=== PATIENT | female | born 2000 | race Caucasian/White ===

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

== ENCOUNTER 2020-06-27 03:54 | Emergency (ER) | payer OTHER ==
[~2020-06-27] VITALS: Ht 172.8 cm; Wt 77.3 kg
[2020-06-27] MEDS ORDERED: LACTATED RINGERS 1,000 ML IV ONE (04:15)
[2020-06-27] MEDS ORDERED: ONDANSETRON 4 MG/2 ML (SDV) Z0FRAN IVP ONE (04:15)
--- NOTE | 2020-06-27 04:15 | NUR ---
MOTHER AT BEDSIDE.
[2020-06-27 04:17] LABS: BASOPHILS % (AUTO) 0 % (0-10); EOSINOPHILS # (AUTO) 0.1 10^3/uL (0.0-0.3); EOSINOPHILS % (AUTO) 1 % (0-10); HEMATOCRIT 43 % (35-52); HEMOGLOBIN 13.7 g/dL (11.5-16.0); LYMPHOCYTES # (AUTO) 0.6 10^3/uL (1.0-4.0); LYMPHOCYTES % (AUTO) 3 % (12-44); MEAN CORPUSCULAR HEMOGLOBIN 26 pg (25-34); MEAN CORPUSCULAR HGB CONC 32 g/dL (32-36); MEAN CORPUSCULAR VOLUME 81 fL (80-99); MEAN PLATELET VOLUME 8.6 fL (9.0-12.2); MONOCYTES # (AUTO) 0.6 10^3/uL (0.0-1.0); MONOCYTES % (AUTO) 3 % (0-12); NEUTROPHILS # (AUTO) 15.5 10^3/uL (1.8-7.8); NEUTROPHILS % (AUTO) 92 % (42-75); PLATELET COUNT 356 10^3/uL (130-400); WHITE BLOOD COUNT 16.9 10^3/uL (4.3-11.0)
--- NOTE | 2020-06-27 04:17 | ED GI ---
General Stated Complaint: N/V/D Source of Information: Patient History of Present Illness Date Seen by Provider: Jun 27, 2020 Time Seen by Provider: 04:04 Initial Comments PT ARRIVES VIA POV FROM HOME C/O DIARRHEA X 2 WEEKS--APPROXIMATELY 2 TIMES A DAY FOR THE LAST 2 WEEKS HAS NOT SOUGHT CARE FOR THAT PROBLEM AT ANYTIME SINCE 2200 THIS EVENING SHE BEGAN TO HAVE NAUSEA AND VOMITING--VOMITING EVERY 30 MINUTES AND IS NOW HAVING DIARRHEA EVERY TIME SHE THROWS UP WELL. MOSTLY DRY HEAVES NOW HAS ABDOMINAL DISCOMFORT JUST BEFORE AND JUST AFTER SHE THROWS UP NO FEVER NO LOSS OF TASTE OR SMELL NO HEADACHE NO BODY ACHES NO SORE THROAT NO COUGH OR NASAL DRAINAGE NO KNOWN EXPOSURE TO COVID 19 NO SICK CONTACTS OR SUSPICIOUS FOODS TOOK ZOFRAN AROUND 0100--HAS RX FOR WHEN SHE HAS MIGRAINES LAST VOID AROUND 2100, BUT HAS URINATED WITH VOMITING AND DIARRHEA WELL LMP END OF MAY, NORMAL. ON OCP'S MOM STATES SHE HAS NOT BEEN CONCERNED ABOUT THE DIARRHEA THAT PT HAS HAD FOR THE LAST COUPLE OF WEEKS--PT HAS MADE ALOT OF DIET CHANGES--TRYING TO LOSE WEIGHT--HAD GAINED 40# SINCE COVID-19 PANDEMIC STARTED--AND PT HAS STRESSED ABOUT SCHOOL, ETC. PCP: DR. ROMAN Allergies and Home Medications Allergies Coded Allergies: No Allergy Information Available (Unverified , 02/22/18) Home Medications Hyoscyamine Sulfate 0.125 Mg Tab.subl, 0.25 MG SL Q4H Prescribed by: SERGE KHAN on 06/27/20512 L. Acidophilus/Pectin, [place] 1 Each Capsule, 2 EACH PO QID Prescribed by: SERGE KHAN on 06/27/20512 Ondansetron 8 Mg Tab.rapdis, 8 MG PO Q6H Prescribed by: SERGE KHAN on 06/27/20512 Patient Home Medication List Home Medication List Reviewed: Yes Review of Systems Review of Systems Constitutional: no symptoms reported EENTM: No Symptoms Reported Respiratory: No Symptoms Reported Cardiovascular: No Symptoms Reported Gastrointestinal: See HPI, Abdominal Pain, Diarrhea, Nausea, Vomiting Genitourinary: No Symptoms Reported Musculoskeletal: no symptoms reported Skin: no symptoms reported Psychiatric/Neurological: No Symptoms Reported Endocrine: No Symptoms Reported Hematologic/Lymphatic: No Symptoms Reported Past Shrehmc-Hyryta-Sujavo Hx Past Med/Social Hx: Reviewed and Corrections made Patient Social History Alcohol Use: Denies Use Drug of Choice: DENIES Smoking Status: Never a Smoker Past Medical History Surgeries: No Respiratory: No Cardiac: No Neurological: Yes Headaches /Migraines : No Reproductive Disorders: Yes Female Reproductive Disorders: Ovarian Cyst Genitourinary: No Gastrointestinal: No Musculoskeletal: No Endocrine: No HEENT: No Cancer: No Psychosocial: Yes Anxiety, Depression Family Medical History LYME DISEASE Physical Exam Vital Signs Vital Signs - First Documented 06/27/20 04:04 Temp 36.5 Pulse 111 Resp 18 B/P (MAP) 136/104 (115) Pulse Ox 97 O2 Delivery Room Air Capillary Refill : Height/Weight/BMI Height: '" Weight: lbs. oz. kg; BMI Method: General Appearance: WD/WN, no apparent distress, other (ANXIOUS, HARSH DRY HEAVES) HEENT: PERRL/EOMI, other (ORAL MUCOSA MOIST) Neck: normal inspection Respiratory: normal breath sounds, no respiratory distress, no accessory muscle use Cardiovascular: regular rate, rhythm, no murmur Gastrointestinal: soft, no organomegaly, abnormal bowel sounds (DECREASED); No distended, No guarding, No rebound; tenderness (MILD EPIGASTRIC TENDERNESS) Extremities: normal inspection Back: no CVA tenderness Neurologic/Psychiatric: scientific editor II-XII nml as tested, no motor/sensory deficits, alert, oriented x 3, other (ANXIOUS) Skin: normal color, warm/dry Progress/Results/Core Measures Results/Orders Lab Results Laboratory Tests Test 06/27/20 04:08 06/27/20 04:50 Range/Units White Blood Count 16.9 H 4.3-11.0 10^3/uL Red Blood Count 5.31 H 3.80-5.11 10^6/uL Hemoglobin 13.7 11.5-16.0 g/dL Hematocrit 43 35-52 % Mean Corpuscular Volume 81 80-99 fL Mean Corpuscular Hemoglobin 26 25-34 pg Mean Corpuscular Hemoglobin Concent 32 32-36 g/dL Red Cell Distribution Width 13.6 10.0-14.5 % Platelet Count 356 130-400 10^3/uL Mean Platelet Volume 8.6 L 9.0-12.2 fL Immature Granulocyte % (Auto) 0 % Neutrophils (%) (Auto) 92 H 42-75 % Lymphocytes (%) (Auto) 3 L 12-44 % Monocytes (%) (Auto) 3 0-12 % Eosinophils (%) (Auto) 1 0-10 % Basophils (%) (Auto) 0 0-10 % Neutrophils # (Auto) 15.5 H 1.8-7.8 10^3/uL Lymphocytes # (Auto) 0.6 L 1.0-4.0 10^3/uL Monocytes # (Auto) 0.6 0.0-1.0 10^3/uL Eosinophils # (Auto) 0.1 0.0-0.3 10^3/uL Basophils # (Auto) 0.0 0.0-0.1 10^3/uL Immature Granulocyte # (Auto) 0.1 0.0-0.1 10^3/uL Neutrophils % (Manual) 87 % Lymphocytes % (Manual) 3 % Monocytes % (Manual) 5 % Band Neutrophils 5 % Blood Morphology Comment NORMAL Sodium Level 137 135-145 MMOL/L Potassium Level 4.1 3.6-5.0 MMOL/L Chloride Level 105 98-107 MMOL/L Carbon Dioxide Level 21 21-32 MMOL/L Anion Gap 11 5-14 MMOL/L Blood Urea Nitrogen 12 7-18 MG/DL Creatinine 0.82 0.60-1.30 MG/DL Estimat Glomerular Filtration Rate > 60 BUN/Creatinine Ratio 15 Glucose Level 132 H 70-105 MG/DL Calcium Level 9.5 8.5-10.1 MG/DL Corrected Calcium 9.3 8.5-10.1 MG/DL Magnesium Level 1.7 1.6-2.4 MG/DL Total Bilirubin 0.7 0.1-1.0 MG/DL Aspartate Amino Transf (AST/SGOT) 22 5-34 U/L Alanine Aminotransferase (ALT/SGPT) 27 0-55 U/L Alkaline Phosphatase 75 40-136 U/L Total Protein 8.2 6.4-8.2 GM/DL Albumin 4.2 3.2-4.5 GM/DL Amylase Level 83 25-125 U/L Lipase 32 8-78 U/L Urine Color YELLOW Urine Clarity CLEAR Urine pH 5.5 5-9 Urine Specific [place] >=1.030 1.016-1.022 Urine Protein 1+ H NEGATIVE Urine Glucose (UA) NEGATIVE NEGATIVE Urine Ketones NEGATIVE NEGATIVE Urine Nitrite NEGATIVE NEGATIVE Urine Bilirubin NEGATIVE NEGATIVE Urine Urobilinogen 0.2 < = 1.0 MG/DL Urine Leukocyte Esterase NEGATIVE NEGATIVE Urine RBC (Auto) 1+ H NEGATIVE Urine RBC 0-2 /HPF Urine WBC NONE /HPF Urine Squamous Epithelial Cells 10-25 H /HPF Urine Crystals NONE /LPF Urine Bacteria FEW H /HPF Urine Casts NONE /LPF Urine Mucus LARGE H /LPF Urine Culture Indicated NO My Orders Orders - SERGE KHAN DO Ed Iv/Invasive Line Start (06/27/20 04:05) Urine Bedside (06/27/20 04:05) Monitor-Rhythm Ecg Trace Only (06/27/20 04:05) Amylase (06/27/20 04:05) Cbc With Automated Diff (06/27/20 04:05) Comprehensive Metabolic Panel (06/27/20 04:05) Lipase (06/27/20 04:05) Magnesium (06/27/20 04:05) Ua Culture If Indicated (06/27/20 04:05) Ondansetron Injection (Zofran Injectio (06/27/20 04:15) Ed Iv/Invasive Line Start (06/27/20 04:05) Lactated Ringers (Lr 1000 Ml Iv Solution (06/27/20 04:15) Manual Differential (06/27/20 04:08) Medications Given in ED Current Medications Medications Dose Ordered Sig/Chava Route Start Time Stop Time Status Last Admin Dose Admin Lactated Ringer's 1,000 ml @ 0 mls/hr Q0M ONCE IV 06/27/20 04:15 06/27/20 04:17 DC 06/27/20 04:10 0 MLS/HR Ondansetron HCl 4 mg ONCE ONCE IVP 06/27/20 04:15 06/27/20 04:17 DC 06/27/20 04:10 4 MG Vital Signs/I&O 06/27/20 04:04 Temp 36.5 Pulse 111 Resp 18 B/P (MAP) 136/104 (115) Pulse Ox 97 O2 Delivery Room Air Progress Progress Note : Progress Note GIVEN IV FLUIDS AND ZOFRAN IV--NAUSEA IMPROVED, NO FURTHER VOMITING. NO DIARRHEA DURING STAY.NO ABDOMINAL PAIN PT WAS ABLE TO VOID SHORTLY AFTER ARRIVAL. PT TOLERATING ICE CHIPS Departure Impression Primary Impression: Gastroenteritis Disposition: 01 HOME, SELF-CARE Condition: Improved Departure-Patient Inst. Referrals: KEVIN ROMAN DO (PCP/Family) Primary Care Physician Patient Instructions: Viral Gastroenteritis, Adult (DC) Add. Discharge Instructions: CLEAR LIQUIDS--WATER, BROTH, JELLO, GATORADE TOMORROW IF YOU ARE BETTER, ADD BRATS DIET TO CLEAR LIQUIDS--BANANAS, RICE, APPLESAUCE, TOAST, SALTINES TAKE YOUR ZOFRAN EVERY 4 HOURS NEEDED FOR NAUSEA FOLLOW UP WITH YOUR DR TOMORROW IF SYMPTOMS PERSIST, RETURN TO ER IF SYMPTOMS WORSEN Scripts L. Acidophilus/Pectin, [place] (Acidophilus Capsule) 1 Each Capsule 2 EACH PO QID, #40 CAP Prov: SERGE KHAN DO 06/27/20 Hyoscyamine Sulfate (Levsin-Sl) 0.125 Mg Tab.subl 0.25 MG SL Q4H, #15 TAB Prov: SERGE KHAN DO 06/27/20 Ondansetron (Ondansetron Odt) 8 Mg Tab.rapdis 8 MG PO Q6H, #10 TAB Prov: SERGE KHAN DO 06/27/20 SERGE KHAN DO Jun 27, 2020 04:17
[2020-06-27 04:36] LABS: ALBUMIN 4.2 GM/DL (3.2-4.5); CHLORIDE 105 MMOL/L (98-107); POTASSIUM 4.1 MMOL/L (3.6-5.0); SODIUM 137 MMOL/L (135-145)
[2020-06-27 04:37] LABS: AMYLASE 83 U/L (25-125); CALCIUM 9.5 MG/DL (8.5-10.1)
[2020-06-27 04:38] LABS: GLUCOSE 132 MG/DL (70-105); TOTAL PROTEIN 8.2 GM/DL (6.4-8.2)
[2020-06-27 04:39] LABS: CARBON DIOXIDE 21 MMOL/L (21-32)
[2020-06-27 04:40] LABS: BILIRUBIN,TOTAL 0.7 MG/DL (0.1-1.0)
[2020-06-27 04:42] LABS: ALKALINE PHOSPHATASE 75 U/L (40-136); CREATININE SERUM 0.82 MG/DL (0.60-1.30); GFR ESTIMATED > 60
[2020-06-27 04:43] LABS: BUN/CREATININE RATIO 15
[2020-06-27 04:45] LABS: ALANINE AMINOTRANSFERASE 27 U/L (0-55); MAGNESIUM 1.7 MG/DL (1.6-2.4)
[2020-06-27 04:46] LABS: LIPASE 32 U/L (8-78)
[2020-06-27 04:58] LABS: BILIRUBIN,URINE NEGATIVE (NEGATIVE); CLARITY,URINE CLEAR; COLOR,URINE YELLOW; GLUCOSE, URINE (UA) NEGATIVE (NEGATIVE); KETONES,URINE NEGATIVE (NEGATIVE); LEUKOCYTE ESTERASE ,URINE NEGATIVE (NEGATIVE); NITRITE,URINE NEGATIVE (NEGATIVE); PH,URINE 5.5 (5-9); PROTEIN,URINE 1+ (NEGATIVE)
[2020-06-27 05:00] LABS: BAND NEUTROPHILS 5 %; NEUTROPHILS % (MANUAL) 87 %
[2020-06-27 05:01] LABS: LYMPHOCYTES % (MANUAL) 3 %; MONOCYTES % (MANUAL) 5 %; RBC MORPH NORMAL
[2020-06-27 05:04] LABS: BACTERIA,URINE FEW /HPF; RBC,URINE 0-2 /HPF
[2020-06-27] MEDS ORDERED: HYOS0.1283 SL (05:13)
[2020-06-27] MEDS ORDERED: L. A1CAP11 PO (05:13)
[2020-06-27] MEDS ORDERED: ONDA8TAB13 PO (05:13)
[2020-06-27 05:24] VITALS: BP 120/72
== END 2020-06-27 05:24 | disposition home or self-care (01) ==
LOC: EDUNIT# 03:54 → ER 03:56
DX: K52.9 Noninfective gastroenteritis and colitis, unspecified (principal); F41.9 Anxiety disorder, unspecified
CPT/HCPCS: 36415; 80053; 81000; 82150; 83690; 83735; 84703; 85007; 85027; 93041

== ENCOUNTER 2021-02-12 10:31 | Emergency (ER) | payer OTHER ==
[~2021-02-12] VITALS: Ht 172 cm; Wt 81.6 kg
[~2021-02-12 10:31] MED LIST changes: +HYOS0.1283 SL; -IOHEXOL 350 MG/ML 100 ML (OMNIPAQUE 350) VIAL IV ONE; +L. A1CAP11 PO; -NS 100 ML (IVPB) BAG IV ONE; +ONDA8TAB13 PO; -RECEIVED CONTRAST (Hold Metformin) IV SCH
--- NOTE | 2021-02-12 10:52 | ED Chest Pain ---
General Chief Complaint: Chest Pain Stated Complaint: CHEST PAIN Source: patient Exam Limitations: no limitations History of Present Illness Date Seen by Provider: Feb 12, 2021 Time Seen by Provider: 10:50 Initial Comments To ER with chest pain that awakened her from sleep that started at about 9 AM this morning. She had associated shortness of breath and the pain was worsened by swallowing. She does feel anxious and she is on fluoxetine for anxiety. No history of this. She states that she had a high heart rate for about 2 years. 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 Timing/Duration: 1-2 days Severity/Quality: moderate Location: central Radiation: no radiation Activities at Onset: none Prior CP/Workup: no prior chest pain ASA po GROUNDS/MAINTENANCE SPECIALIST: No NTG SL GROUNDS/MAINTENANCE SPECIALIST: No Associated Symptoms: shortness of breath Allergies and Home Medications Allergies Coded Allergies: No Allergy Information Available (Unverified , 02/22/18) Patient Home Medication List Home Medication List Reviewed: Yes Hyoscyamine Sulfate (Levsin-Sl) 0.125 Mg Tab.subl, 0.25 MG SL Q4H Prescribed by: SERGE KHAN on 06/27/20512 L. Acidophilus/Pectin, [place] (Acidophilus Capsule) 1 Each Capsule, 2 EACH PO QID Prescribed by: SERGE KHAN on 06/27/20512 Ondansetron (Ondansetron Odt) 8 Mg Tab.rapdis, 8 MG PO Q6H Prescribed by: SERGE KHAN on 06/27/20512 Review of Systems Review of Systems Constitutional: see HPI EENTM: No Symptoms Reported Respiratory: No Symptoms Reported Cardiovascular: See HPI, Chest Pain Gastrointestinal: No Symptoms Reported Genitourinary: No Symptoms Reported Musculoskeletal: no symptoms reported Skin: no symptoms reported Psychiatric/Neurological: No Symptoms Reported Endocrine: No Symptoms Reported Hematologic/Lymphatic: No Symptoms Reported Past Duuwfpu-Xukmji-Slyekb Hx Patient Social History Tobacco Use?: No Substance use?: No Alcohol Use?: Yes Alcohol Frequency: Once in a while Pt feels they are or have been: No Immunizations Up To Date First/Initial COVID19 Vaccinat: October COVID19 Vaccination Adonis: NOVEMBER COVID Vaccine Real Estate Investment Analyst: RANDI Seasonal Allergies Seasonal Allergies: No Past Medical History Surgery/Hospitalization HX: PMH: ANXIETY, DEPRESSION Surgeries: No Respiratory: No Cardiac: No Neurological: Yes Headaches /Migraines Reproductive Disorders: Yes Female Reproductive Disorders: Ovarian Cyst Genitourinary: No Gastrointestinal: No Musculoskeletal: No Endocrine: No HEENT: No Cancer: No Psychosocial: Yes Anxiety, Depression Integumentary: No Family Medical History LYME DISEASE Physical Exam Vital Signs Vital Signs - First Documented 02/12/21 10:46 Temp 36.1 Pulse 94 Resp 18 B/P (MAP) 145/98 (114) Pulse Ox 99 Capillary Refill : Height, Weight, BMI Height: '" Weight: lbs. oz. kg; 25.00 BMI Method: General Appearance: No Apparent Distress, WD/WN, Anxious Neck: Full Range of Motion, Normal Inspection Respiratory: Lungs Clear, Normal Breath Sounds, No Accessory Muscle Use, No Respiratory Distress Cardiovascular: Regular Rate, Rhythm, Normal Peripheral Pulses Gastrointestinal: Normal Bowel Sounds, Non Tender, Soft Extremity: Normal Capillary Refill, Normal Inspection Neurologic/Psychiatric: Alert, Oriented x3 Skin: Normal Color, Warm/Dry Progress/Results/Core Measures Results/Orders Lab Results Laboratory Tests Test 02/12/21 11:08 Range/Units White Blood Count 11.5 H 4.3-11.0 10^3/uL Red Blood Count 5.02 3.80-5.11 10^6/uL Hemoglobin 12.8 11.5-16.0 g/dL Hematocrit 42 35-52 % Mean Corpuscular Volume 83 80-99 fL Mean Corpuscular Hemoglobin 26 25-34 pg Mean Corpuscular Hemoglobin Concent 31 L 32-36 g/dL Red Cell Distribution Width 14.2 10.0-14.5 % Platelet Count 331 130-400 10^3/uL Mean Platelet Volume 8.2 L 9.0-12.2 fL Immature Granulocyte % (Auto) 0 % Neutrophils (%) (Auto) 71 42-75 % Lymphocytes (%) (Auto) 21 12-44 % Monocytes (%) (Auto) 5 0-12 % Eosinophils (%) (Auto) 2 0-10 % Basophils (%) (Auto) 0 0-10 % Neutrophils # (Auto) 8.2 H 1.8-7.8 10^3/uL Lymphocytes # (Auto) 2.5 1.0-4.0 10^3/uL Monocytes # (Auto) 0.6 0.0-1.0 10^3/uL Eosinophils # (Auto) 0.2 0.0-0.3 10^3/uL Basophils # (Auto) 0.0 0.0-0.1 10^3/uL Immature Granulocyte # (Auto) 0.0 0.0-0.1 10^3/uL D-Dimer 0.35 0.00-0.49 UG/ML Sodium Level 137 135-145 MMOL/L Potassium Level 3.9 3.6-5.0 MMOL/L Chloride Level 107 98-107 MMOL/L Carbon Dioxide Level 19 L 21-32 MMOL/L Anion Gap 11 5-14 MMOL/L Blood Urea Nitrogen 12 7-18 MG/DL Creatinine 0.76 0.60-1.30 MG/DL Estimat Glomerular Filtration Rate 96 BUN/Creatinine Ratio 16 Glucose Level 94 70-105 MG/DL Calcium Level 9.3 8.5-10.1 MG/DL Corrected Calcium 9.5 8.5-10.1 MG/DL Total Bilirubin 0.6 0.1-1.0 MG/DL Aspartate Amino Transf (AST/SGOT) 13 5-34 U/L Alanine Aminotransferase (ALT/SGPT) 10 0-55 U/L Alkaline Phosphatase 74 40-136 U/L Troponin I < 0.028 <0.028 NG/ML C-Reactive Protein High Sensitivity 1.57 H 0.00-0.50 MG/DL Total Protein 7.4 6.4-8.2 GM/DL Albumin 3.7 3.2-4.5 GM/DL My Orders Orders - OMAR KEMP APRN Cbc With Automated Diff (02/12/21 10:48) Comprehensive Metabolic Panel (02/12/21 10:48) Fibrin Degradation Products (02/12/21 10:48) Ekg Tracing (02/12/21 10:48) Chest 1 View, Ap/Pa Only (02/12/21 10:48) Troponin I (02/12/21 10:48) Hs C Reactive Protein (02/12/21 10:48) Antacid Suspension (Mylanta Suspension (02/12/21 11:00) Lidocaine 2% Viscous 15 Ml (Xylocaine Vi (02/12/21 11:00) Alprazolam Tablet (Xanax Tablet) (02/12/21 11:00) Medications Given in ED Current Medications Medications Dose Ordered Sig/Chava Route Start Time Stop Time Status Last Admin Dose Admin Al Hydrox/Mg Hydrox/Simethicone 30 ml ONCE ONCE PO 02/12/21 11:00 02/12/21 11:01 DC 02/12/21 11:00 30 ML Alprazolam 0.25 mg ONCE ONCE PO 02/12/21 11:00 02/12/21 11:01 DC 02/12/21 11:00 0.25 MG Lidocaine HCl 10 ml ONCE ONCE PO 02/12/21 11:00 02/12/21 11:01 DC 02/12/21 11:00 10 ML Vital Signs/I&O 02/12/21 10:46 Temp 36.1 Pulse 94 Resp 18 B/P (MAP) 145/98 (114) Pulse Ox 99 Departure Communication (Admissions) EKG shows sinus rhythm at 82, no ST segment changes no ectopy. Impression Primary Impression: Nonspecific chest pain Disposition: HOME, SELF-CARE Condition: Stable Departure-Patient Inst. Decision time for Depature: 12:01 Referrals: KEVIN ROMAN DO (PCP/Family) Primary Care Physician Patient Instructions: Chest Pain That Is Not Caused by the Heart (DC) OMAR KEMP DEATH SURVEYS CODER Feb 12, 2021 10:52
[2021-02-12] MEDS ORDERED: ALPRAZolam 0.25 MG (XANAX) TAB PO ONE (11:00)
[2021-02-12] MEDS ORDERED: LIDOCAINE 2% VISCOUS 15 ML UDC PO ONE (11:00)
[2021-02-12] MEDS ORDERED: ANTACID SUSP 30 ML UDC (MYLANTA) PO ONE (11:00)
[2021-02-12 11:18] LABS: BASOPHILS % (AUTO) 0 % (0-10); EOSINOPHILS # (AUTO) 0.2 10^3/uL (0.0-0.3); EOSINOPHILS % (AUTO) 2 % (0-10); HEMATOCRIT 42 % (35-52); HEMOGLOBIN 12.8 g/dL (11.5-16.0); LYMPHOCYTES # (AUTO) 2.5 10^3/uL (1.0-4.0); LYMPHOCYTES % (AUTO) 21 % (12-44); MEAN CORPUSCULAR HEMOGLOBIN 26 pg (25-34); MEAN CORPUSCULAR HGB CONC 31 g/dL (32-36); MEAN CORPUSCULAR VOLUME 83 fL (80-99); MEAN PLATELET VOLUME 8.2 fL (9.0-12.2); MONOCYTES # (AUTO) 0.6 10^3/uL (0.0-1.0); MONOCYTES % (AUTO) 5 % (0-12); NEUTROPHILS # (AUTO) 8.2 10^3/uL (1.8-7.8); NEUTROPHILS % (AUTO) 71 % (42-75); PLATELET COUNT 331 10^3/uL (130-400); WHITE BLOOD COUNT 11.5 10^3/uL (4.3-11.0)
[2021-02-12 11:32] LABS: ALBUMIN 3.7 GM/DL (3.2-4.5); CHLORIDE 107 MMOL/L (98-107); POTASSIUM 3.9 MMOL/L (3.6-5.0); SODIUM 137 MMOL/L (135-145)
[2021-02-12 11:33] LABS: CALCIUM 9.3 MG/DL (8.5-10.1)
[2021-02-12 11:34] LABS: GLUCOSE 94 MG/DL (70-105); TOTAL PROTEIN 7.4 GM/DL (6.4-8.2)
[2021-02-12 11:35] LABS: CARBON DIOXIDE 19 MMOL/L (21-32)
[2021-02-12 11:36] LABS: BILIRUBIN,TOTAL 0.6 MG/DL (0.1-1.0)
[2021-02-12 11:38] LABS: ALKALINE PHOSPHATASE 74 U/L (40-136); CREATININE SERUM 0.76 MG/DL (0.60-1.30); GFR ESTIMATED 96
[2021-02-12 11:39] LABS: BUN/CREATININE RATIO 16
[2021-02-12 11:41] LABS: ALANINE AMINOTRANSFERASE 10 U/L (0-55)
--- NOTE | 2021-02-12 12:09 | Diagnostic Imaging Report ---
EXAMINATION: Chest 1 view HISTORY: chest pain COMPARISON: None available. FINDINGS: The lungs are clear without edema or pneumonia. No pleural effusion or pneumothorax. Heart size is normal. IMPRESSION: 1. Clear lungs. Dictated by: Dictated on workstation # [id number]
[2021-02-12 12:15] VITALS: BP 124/74
== END 2021-02-12 12:14 | disposition home or self-care (01) ==
LOC: EDUNIT# 10:31 → ER 10:33
DX: R07.9 Chest pain, unspecified (principal); F41.9 Anxiety disorder, unspecified; F32.9 Major depressive disorder, single episode, unspecified; Z79.899 Other long term (current) drug therapy
CPT/HCPCS: 36415; 71045; 80053; 84484; 85025; 85379; 86141; 93005

== ENCOUNTER → 2021-02-22 | Outpatient (CLI) | payer OTHER ==
--- NOTE | 2021-02-22 08:45 | Diagnostic Imaging Report ---
EXAMINATION: US Abdomen limited. TECHNIQUE: Multiple real-time grayscale images were obtained over the right upper quadrant in various projections. HISTORY: RUQ PAIN COMPARISON: CT abdomen pelvis 06/25/2018 FINDINGS: Pancreas: The visualized portions of the pancreas are normal. Liver: The liver is normal in echogenicity and contour. No focal lesions are seen. The portal vein is patent with hepatopetal flow. Gallbladder and biliary tree: Gallbladder is normal without wall thickening, pericholecystic fluid, or sonographic Simmons sign. There is no biliary ductal dilation. The common duct measures 0.3 cm. Right kidney: The right kidney is normal without hydronephrosis. Aorta and IVC: The visualized aorta and inferior vena cava are normal. Fluid: No ascites is seen. IMPRESSION: 1. Unremarkable right upper quadrant ultrasound. Dictated by: Dictated on workstation # [id number]
== END ==
LOC: RAD 07:44
PROVIDERS: ATTEND Nurse Practitioner Family
DX: R10.11 Right upper quadrant pain (principal)
CPT/HCPCS: 76705

== ENCOUNTER → 2021-03-02 | Outpatient (CLI) | payer OTHER | LOC: CARD 15:00 | PROVIDERS: ATTEND Internal Medicine Cardiovascular Disease | DX: R00.2 Palpitations (principal) | CPT/HCPCS: 93225; 93226 ==

== ENCOUNTER → 2021-03-22 | Outpatient (CLI) | payer OTHER ==
[2021-03-22 09:53] VITALS: BP 137/77
== END ==
LOC: CARD 09:00
PROVIDERS: ATTEND Internal Medicine Cardiovascular Disease
DX: R07.89 Other chest pain (principal)
CPT/HCPCS: 93306; 93351